=== PATIENT | male | born 1955 | race Two or more races ===

== ENCOUNTER 2020-08-03 11:41 | Inpatient (IN) | payer OTHER ==
[~2020-08-03] VITALS: Ht 188 cm; Wt 95.3 kg
[2020-08-03] MEDS ORDERED: TAMS0.4C (12:05)
[2020-08-03] MEDS ORDERED: FORTAMET500 MG (12:05)
[2020-08-03] MEDS ORDERED: CIPRO500 MG (12:06)
== END 2020-08-05 06:47 | disposition expired ==
LOC: ER 11:41 → SEC-K 17:18 → MEDI 08-04 07:53
PROVIDERS: ADMIT Internal Medicine; ATTEND Internal Medicine
PROC: B246ZZZ Ultrasonography of Right and Left Heart (ICD-10-PCS; principal; 2020-08-03)
PROC: BT43ZZZ Ultrasonography of Bilateral Kidneys (ICD-10-PCS; 2020-08-03)
PROC: 4A033R1 Measurement of Arterial Saturation, Peripheral, Percutaneous Approach (ICD-10-PCS; 2020-08-03)
PROC: 4A12X4Z Monitoring of Cardiac Electrical Activity, External Approach (ICD-10-PCS; 2020-08-04)
PROC: 0BH17EZ Insertion of Endotracheal Airway into Trachea, Via Natural or Artificial Opening (ICD-10-PCS; 2020-08-04)
DX: I21.4 Non-ST elevation (NSTEMI) myocardial infarction (principal); I50.21 Acute systolic (congestive) heart failure; N17.8 Other acute kidney failure; I21.9 Acute myocardial infarction, unspecified; N40.0 Benign prostatic hyperplasia without lower urinary tract symptoms; I11.0 Hypertensive heart disease with heart failure; E11.65 Type 2 diabetes mellitus with hyperglycemia; Z20.828 Contact with and (suspected) exposure to other viral communicable diseases